=== PATIENT | female | born 1955 | race African-American/Black ===

== ENCOUNTER 2025-06-02 04:20 | Emergency (ER) | payer OTHER, MEDICAID ==
[~2025-06-02] VITALS: Ht 170.2 cm; Wt 81.0 kg
[~2025-06-02 04:20] MED LIST: AMLO10TA80 MT; ASCO500C18 MT; BENZ100C86 PO; CHOL400D7 MT; LEVO-65 MT; LISI40TA21 MT; MELO-106 MT; P20 MT
[2025-06-02 04:24] VITALS: O2SAT 98
[2025-06-02 06:04] LABS: BASOPHILS % 0.7 % (0.0-2.0); EOSINOPHILS % 3.1 % (0.0-5.0); HEMATOCRIT. 42.9 % (36.0-48.0); HEMOGLOBIN. 14.3 g/dL (12.0-16.0); LYMPHOCYTES % 27.4 % (20.0-50.0); MEAN PLATELET VOLUME 8.4 fl (7.4-10.4); MONOCYTES % 12.4 % (2.0-8.0); NEUTROPHILS % 56.4 % (40.0-76.0); PLATELET 302 x1000/uL (130-400); RED BLOOD CELL COUNT 4.40 mill/uL (4.2-5.4); RED CELL DISTRIBUTION WIDTH 13.4 % (11.6-14.6)
[2025-06-02] MEDS: ONDANSETRON 4MG ODT PO ONE (06:11)
[2025-06-02 06:21] LABS: CREATININE 0.7 mg/dL (0.6-1.0)
[2025-06-02 06:22] LABS: PROTEIN TOTAL 6.8 g/dL (6.0-8.3); UREA NITROGEN BLOOD 8 mg/dL (9-23)
[2025-06-02 06:23] LABS: ASPARTATE AMINOTRANSFERASE 18 IU/L (<34); TROPONIN I HIGH SENSITIVITY 10 ng/L (3.0-34)
[2025-06-02 06:24] LABS: BILIRUBIN DIRECT < 0.1 mg/dL (<=3.0); BILIRUBIN TOTAL 0.2 mg/dL (0.1-1.0)
[2025-06-02 08:32] LABS: TROPONIN I HIGH SENSITIVITY 8 ng/L (3.0-34)
[2025-06-02 09:55] VITALS: BP 140/90; PULSE 82; RESP 21; TEMP 36.6; O2SAT 97
[2025-06-02] MEDS: ASPIRIN 325MG TABLET PO ONE (10:02)
== END 2025-06-02 10:18 | disposition short-term general hospital (02) ==
LOC: ER 04:47 → EDBEDREQ 09:03 → EDBEDREQTM 09:03 → CANBEDREQ 10:02 → ER 10:18
DX: R07.2 Precordial pain (principal); R05.9 Cough, unspecified; R91.1 Solitary pulmonary nodule; J45.909 Unspecified asthma, uncomplicated; I11.0 Hypertensive heart disease with heart failure; I50.9 Heart failure, unspecified; Z79.899 Other long term (current) drug therapy; Z79.1 Long term (current) use of non-steroidal anti-inflammatories (NSAID); Z88.5 Allergy status to narcotic agent
CPT/HCPCS: 99285; 71045; 80076; 80048; 85025; 84484; 36415; 93005; Q0162